=== PATIENT | female | born 1970 | race Caucasian/White ===

== ENCOUNTER 2019-09-20 00:21 | Observation (INO) | payer SELFPAY ==
[2019-09-20] VITALS (13 sets, daily range): BP systolic 117–190; BP diastolic 64–99; PULSE 59–93; RESP 14–19; TEMP 36.3–36.8; O2SAT 96–98; BMI 30.4; BMI 30.7; BMI 30.8
--- NOTE | 2019-09-20 00:29 | EKG12_ITS ---
Test Reason : GEN ILL Blood Pressure : / mmHG Vent. Rate : 078 BPM Atrial Rate : 078 BPM P-R Int : 144 ms QRS Dur : 152 ms QT Int : 484 ms P-R-T Axes : 060 037 -26 degrees QTc Int : 551 ms Normal sinus rhythm Right bundle branch block Abnormal ECG Confirmed by WYATT LEONG ([id number]), non linear editor ASH BECKMAN ([id number]) on 09/21/2019 3:01:48 PM Referred By: Anderson Cutler Confirmed By:WYATT LEONG
[2019-09-20] MEDS: 0.9% Normal Saline 1,000 ML 150 ML IV (01:10)
--- NOTE | 2019-09-20 01:16 | ED.VIS.GEN ---
History of Present Illness Chief Complaint: General Illness Detail of Chief Complaint: Low potassium Informant: Patient Narrative: Patient was in the [facility] today secondary to a 5 or 6-day history of muscle aching and cramping. She has had recent weight loss. It was initially reported that she had had diarrhea however patient states she has chronic diarrhea since having her gallbladder out. Patient received a phone call tonight from physician covering for PCP advising her to come in for a low potassium of 1.9. Patient does report problems with her potassium the past but states is been several years. - Past Medical History (1) Hypertension Status: Chronic (2) GERD (gastroesophageal reflux disease) Status: Chronic (3) Diabetes Status: Chronic (4) Hx of cholecystectomy Status: Chronic Past Medical History - Allergies and Home Meds Allergies/Adverse Reactions: Allergies metformin Adverse Reaction (Verified 09/20/19 00:22) Diarrhea Primary Care Physician: Abdias Christian DO [Primary Care Provider] - Prior records reviewed: Yes Smoking Status: Current every day smoker Review of Systems General: Denies: Chills, Fever Eyes: Denies: Visual changes - bilaterally ENT: Denies: Bilateral ear pain Cardiovascular: Denies: Chest pain Respiratory: Denies: Dyspnea, Cough Musculoskeletal: Reports: Myalgias, Extremity Pain. Denies: Swelling Skin: Denies: Rash Neurological: Denies: Headache Hematologic: Denies: Easy bruising, Easy bleeding Allergy: Denies: Uticaria Physical Exam Vital Signs/Narrative: Vital Signs Temp Pulse Resp BP Pulse Ox 09/20/19 00:22 97.4 F L 93 19 H 190/99 H 98 Inital Vital Signs reviewed: Yes General: Well nourished, Well developed Head: Normocephalic ENT: Moist mucous membranes Neck: Supple Cardiovascular: Regular rate, Regular rhythm Respiratory: No distress, CTA bilaterally Abdomen: Soft, Nontender Skin: Normal color Neurological: Alert, Oriented x3, Normal Strength, Normal Sensation Psychological: Normal affect Diagnostic/Tx/Re-eval Laboratory Results 09/20/19 09/20/19 01:05 01:05 WBC 13.2 H RBC 4.91 Hgb 15.0 Hct 41.0 MCV 83.5 MCH 30.5 MCHC 36.6 H RDW Std Deviation 40.1 RDW Coeff of Marj 13.3 Plt Count 264 MPV 10.9 Immature Gran % (Auto) 0.300 Neut % (Auto) 49.1 Lymph % (Auto) 37.6 [place] % (Auto) 7.7 Eos % (Auto) 4.5 Baso % (Auto) 0.8 Absolute Neuts (auto) 6.5 Absolute Lymphs (auto) 4.96 H Nucleated RBC % 0 Sodium 136 Potassium 1.7 L* Chloride 104 Carbon Dioxide 24.0 Anion Gap 8 BUN 14 Creatinine 1.15 H Estim Creat Clear Calc 44.65 Est GFR (MDRD) Af Amer 64 Est GFR (MDRD) Non-Af 53 L BUN/Creatinine Ratio 12.2 Glucose 417 H Calcium 9.7 Magnesium 2.1 - EKG Initial EKG Interpretation: Sinus Rhythm - Sinus with right bundle branch pattern. Previous EKG is from March 2016 at which time she was sinus rhythm at 76 with no bundle branch block present. - Medical Decision Making I received a phone call from Dr. Antonio informing me of the patient's outpatient labs obtained earlier in the day. Because the patient did have EKG changes noted on surveillance system monitor she was given 60 mEq of potassium chloride shortly after I saw her. Laboratory studies do confirm hypokalemia with a potassium of 1.7. At this time an additional 40 mEq of potassium have been ordered IV. Patient be discussed with hospitalist and admitted to the ICU. ED Disposition - Plan for ED Patient: Disposition: Acute Care Hospital [facility] Diagnosis: Hypokalemia Referrals: Abdias Christian DO [Primary Care Provider] -
[2019-09-20 01:26] LABS: Absolute Lymphocyte Count 4.96 X10^3/uL (0.83-4.51); Absolute Neutrophil Count 6.5 X10^3/uL (2.0-7.7); Basophil# 0.11 X10^3/uL; Basophil% 0.8 % (0-1); Eosinophil# 0.59 X10^3/uL; Eosinophils% 4.5 % (0-5); Lymphocyte # 4.96 X10^3/ul (4.0); Lymphocyte % 37.6 % (19-41); Mean Corp Hgb Conc 36.6 g/dL (32-36); Mean Corpuscular Hgb 30.5 pg (27.0-32.0); Mean Corpuscular Volume 83.5 fL (81-99); Mean Platelet Vol. 10.9 fl (6.2-12.0); Monocyte# 1.01 X10^3/uL; Monocyte% 7.7 % (0-10); NRBC Flagged by Analyzer 0 % (0-5); Neutrophil # 6.48 X10^3/uL (2.7-7.7); Neutrophil % 49.1 % (47-70); Platelet Count 264 K/mm3 (150-450); RBC Distribution Width CV 13.3 % (11.6-14.6); RBC Distribution Width SD 40.1 fl (35.1-43.9); Red Blood Count 4.91 M/mm3 (4.2-5.4); White Blood Count 13.2 K/mm3 (4.4-11.0)
[2019-09-20 01:48] LABS: Anion Gap 8 (5-15); BUN 14 mg/dL (7-18); BUN/Creat Ratio 12.2 RATIO (10-20); Calcium,Total 9.7 mg/dL (8.5-10.1); Chloride 104 mmol/L (98-107); Creatinine, Serum 1.15 mg/dL (0.55-1.02); EST Glomerular Filtration Rate 53 mL/min (>60); Est Glom Filt Rate - Afr Amer 64 mL/min (>60); Estimated Creatinine Clearance 44.65 ml/min; Glucose 417 mg/dL (74-106); Magnesium 2.1 mg/dL (1.6-2.6); Potassium 1.7 mmol/L (3.5-5.1); Sodium Level 136 mmol/L (136-145)
[2019-09-20] MEDS: Potassium Chloride 10mEq/100mL 10 MEQ/100 ML IV.SOLN. 100 MEQ IV BOLUS ×8 (02:09→20:16)
--- NOTE | 2019-09-20 02:44 | HP.PCM_ITS ---
Problem List (1) Hypokalemia Status: Acute History of Present Illness Date of Admission: 09/20/19 Chief Complaint: Hypokalemia The patient is a 48 year old F seen in the emergency room at [facility] after being instructed to go and for evaluation of a low serum potassium. Patient had a serum potassium down yesterday which was 1.7. Patient states that she has had low serum potassium before but she does not know when it was, the last potassium level that we have on the patient was last fall and the potassium was in the normal range. Patient takes medication for blood pressure and type 2 diabetes. Patient complained of muscle weakness and muscle pain over the last few days. Work-up in the emergency room included labs which showed a potassium of 1.7, creatinine was 1.15, glucose was 417, and white blood cell count was 13.2. P stephanie's EKG showed a right bundle branch block but normal sinus rhythm. Patient was given oral potassium in the emergency room and IV potassium also. Patient will be placed into observation status on PCU, she will be given additional oral potassium and her potassium level will be rechecked later this morning. Past Medical History Past Medical History (Chronic Problems): Chronic Problems Hypertension (Chronic) GERD (gastroesophageal reflux disease) (Chronic) Diabetes (Chronic) Hx of cholecystectomy (Chronic) Allergies metformin Adverse Reaction (Verified 09/20/19 00:22) Diarrhea Home Medications: Ambulatory Orders Medication Instructions Recorded Atorvastatin Calcium 40 mg PO DAILY 02/01/17 Calcium Carb/Vitamin D 1 tab PO BID 02/01/17 [Caltrate-600 With Vit D Tab] Cholecalciferol (Vitamin D3) 2,000 unit PO DAILY 02/01/17 [Vitamin D3] Dulaglutide [Trulicity] 1.5 mg SQ QWEEK 02/01/17 Gabapentin 100 mg PO TID 02/01/17 Pantoprazole Sodium [Protonix] 40 mg PO DAILY 02/01/17 Sertraline HCl [Zoloft] 50 mg PO DAILY 02/01/17 metFORMIN (XR) [Glucophage Xr] 1,000 mg PO BID 02/01/17 Hydrocodone Bitart/Apap 5-325 1 tab PO BID 09/20/19 [[place] 5MG-325MG] Insulin Aspart [Novolog Flexpen 20 units SUBCUT TIDCM 09/20/19 ([facility])] Insulin Degludec [Tresiba 70 unit SQ QHS 09/20/19 Flextouch U-100] Lisinopril [Zestril] 40 mg PO DAILY 09/20/19 Metoprolol Tartrate 50 mg PO BID 09/20/19 Surgical History: cholecystectomy, tonsillectomy, - - Surgery for groin abscess, uterine ablation, removal of fallopian tube Psychiatric History: No pertinent psych hx 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 Denies: Anorexia, Chills, Fever, Night Sweats, Malaise, Weight Change, Fatigue Eyes: Denies: Cataracts, Conjunctivae Inflammation, Double vision, Drainage HEENT: Denies: Difficulty Swallowing, Dysphasia, Ear Pain, Eye Pain, Hearing Changes, Nasal bleeding, Nasal Congestion Cardiovascular: Denies: Chest Pain, Claudication, Chest Pressure, Chest Tigh tness, Edema, Palpitations, Paroxysmal Noc. Dyspnea Respiratory: Denies: Cough, Hemoptysis, Pleuritic Pain, Shortness of Breath, Shortness of breath at rest, Shortness of breath upon exertion, Sputum production Gastrointestinal: Denies: Abdominal Pain, Constipation, Diarrhea, Hematemesis, Hematochezia, Nausea, Melena, Vomiting Genitourinary: Denies: Dysuria, Frequency, Hematuria, Hesitancy, Nocturia, Retention, Urgency Gynecological: Denies: Breast symptoms Musculoskeletal: Denies: Back Pain, Foot Pain, Hand Pain, Joint Pain, Joint stiffness, Joint swelling, Joint Tenderness, Leg Pain Skin: Denies: Dryness, Jaundice, Pruritis, Rash Neurological: Denies: Blurred vision, Double vision, Slurred speech, Difficulty swallowing, Focal weakness, Headaches, Incoordination, Numbness, Tingling Psychiatric: Denies: Anxiety, Depression, Homicidal Ideations, Suicidal Ideations Endocrine: Denies: Change in Body Habitus, Heat/ Cold Intolerance, Polydipsia, Polyuria Hematologic/ Lymphatic: Denies: Adenopathy, Anemia, Easy Bruising, Easy Bleeding, Petechiae, Purpura VTE Information - Inpt Only VTE Present on Admission: No VTE Mechan Device Prophylaxis: None VTE Pharm Prophylaxis ordered?: No Reason prophylaxis not ordered:: Treatment Not Indicated - Patient is an observation patient is expected to stay 24 hours or less in the hospital Patient Problems: Active and Suspected Problems Hypokalemia (Acute) - Physical Exam Vitals/I&O's: Vital Signs Temp Pulse Resp BP Pulse Ox 97.4 F L 93 19 H 148/81 H 98 09/20/19 00:22 09/20/19 00:22 09/20/19 00:22 09/20/19 02:35 09/20/19 00:22 Oxygen Delivery Method Room Air Weight: 73.028 kg Body Mass Index (BMI) 30.4 Finger Stick Blood Glucose 403 General: Alert, Oriented x3, Cooperative HEENT: Atraumatic, PERRLA, EOMI, Normocephalic Oral: Moist Mucosa Neck: Supple, No JVD, Negative Carotid Bruits, No Nuchal Rigidity, Trachea Midline, Thyroid Normal Size and Texture Lungs: Clear to auscultation, Normal air movement Cardiovascular: Regular rate, Regular Rhythm, Normal S1, Normal S2, No murmurs, PMI Normal, No rub noted Abdomen: Bowel Sounds Present, Soft, Non Tender, Non-Distended Extremities: No clubbing, No cyanosis, No edema, Capillary Refill Less than 3 Seconds Skin: No rashes, No breakdown Musculoskeletal: No Tenderness to Palpation of Joints or Extremities Neurological: Cranial nerves II-XII grossly intact, Neuro grossly intact, Sensory exam intact to light touch and pain, Coordination normal Psych/Mental Status: Normal Affect, Appropriate, Alert and oriented to time, place, person, mood and affect Laboratory Results 09/20/19 01:05: WBC 13.2 H, RBC 4.91, Hgb 15.0, Hct 41.0, MCV 83.5, MCH 30.5, MCHC 36.6 H, RDW Std Deviation 40.1, RDW Coeff of Marj 13.3, Plt Count 264, MPV 10.9, Immature Gran % (Auto) 0.300, Neut % (Auto) 49.1, Lymph % (Auto) 37.6, [place] % (Auto) 7.7, Eos % (Auto) 4.5, Baso % (Auto) 0.8, Absolute Neuts (auto) 6.5, Absolute Lymphs (auto) 4.96 H, Nucleated RBC % 0 09/20/19 01:05: Sodium 136, Potassium 1.7 L*, Chloride 104, Carbon Dioxide 24.0, Anion Gap 8, BUN 14, Creatinine 1.15 H, Estim Creat Clear Calc 44.65, Est GFR (MDRD) Af Amer 64, Est GFR (MDRD) Non-Af 53 L, BUN/Creatinine Ratio 12.2, Glucose 417 H, Calcium 9.7, Magnesium 2.1 Current Medications Sodium Chloride () 1,000 mls @ 150 mls/hr IV .Q6H40M COUNTS INCLUDE 234 BEDS AT THE [facility] Last Admin: 09/20/19 01:10 Dose: 150 mls/hr Documented by: Potassium Chloride () 10 meq in 100 mls @ 100 mls/hr IV BOLUS Q1H COUNTS INCLUDE 234 BEDS AT THE [facility] Stop: 09/20/19 05:59 Last Admin: 09/20/19 02:09 Dose: 100 mls/hr Documented by: Assessment/Plan All Active Problems Hypokalemia (Acute) Physical exam (Acute) #1 hypokalemia-the exact etiology of this is unknown, patient has episodes of diarrhea but she has not complained of any severe diarrhea in the last several days. I do not have a record of the patient's last few potassium levels at this time. Patient will be placed in observation status on PCU, she will receive additional oral potassium today, she was written for four K riders in the emergency room and these will be continued when she goes to the floor. It is possible the patient has hyperaldosteronism, I will order a serum aldosterone level to be done on the patient. I think is less likely she has RTA-patient's bicarb level is normal on her chem panel. #2 type 2 diabetes-under poor control, patient does not recall her insulin dose at home at this time, her meds will be reconciled when she gets to the floor. Sugars will be monitored and she will receive sliding scale insulin per protocol #3 essential hypertension-when her home meds were reconciled, she will be placed on her blood pressure medication #4 chronic kidney disease stage III-most probably from type 2 diabetes, patient's last creatinine at this hospital was elevated #5 GERD #6 mild leukocytosis-etiology unclear OBSV E&M: [id number] Initial observation care L3
[2019-09-20] MEDS: Acetaminophen 325 MG Tablet 650 MG PO (04:19)
[2019-09-20] MEDS: Insulin Lispro 100 UNIT/ML INSULN.PEN SC ×4 (06:34→21:21)
[2019-09-20 06:40] LABS: Bedside Glucose 447 mg/dL (70-110)
--- NOTE | 2019-09-20 10:53 | CASEMGMT ---
SW met with patient as she does not have insurance, introduced self and role at [facility]. Patient sees a physician at [facility] and she utilizes their financial assistance program. She has been managing getting most of her meds, but not all of them. She has not applied for Medicaid as she was working up to two weeks ago and plans to go back to work. MOE told her SW will give her some resources for help. SW took patient information on [employer], [employer], needymeds.org, and a Medicaid application. Patient was sleeping when SW went back to the room. SW left the paperwork in her room and will stop by a little later to tell her about papers. Peggy LEE MSW
--- NOTE | 2019-09-20 11:28 | PCM.PN.HOSP ---
Patient Problems: Active and Suspected Problems Hypokalemia (Acute) Reason for Visit: follow up for hypokalemia Subjective: Patient seen and examined. She was admitted with abnormal labs with potassium of 1.7. Potassium is been replaced. Patient seen and examined. She has no complaints this morning denies any fever or chills, lightheadedness or dizziness, palpitations, nausea vomiting or diarrhea. Review of systems otherwise negative. Labs and vitals reviewed. Vitals/I&O's: Vital Signs Temp Pulse Resp BP Pulse Ox 98.2 F 78 18 141/75 H 98 09/20/19 08:11 09/20/19 08:11 09/20/19 08:11 09/20/19 08:11 09/20/19 08:11 Oxygen Delivery Method Room Air Weight: 162 lb 14.746 oz Body Mass Index (BMI) 30.7 Finger Stick Blood Glucose 403 Intake and Output for Last 24 Hours 09/18/19 09/19/19 09/20/19 23:59 23:59 23:59 Intake Total 1375 / 1375 Output Total 0 / 0 Balance 1375 / 1375 General: Alert, Oriented x3, Cooperative, - - looks older than stated age HEENT: Atraumatic, PERRLA, EOMI, Normocephalic Oral: Dry Mucosa Neck: Supple, No JVD, Negative Carotid Bruits Lungs: Clear to auscultation, Normal air movement, No rhonchi, No wheeze, No rales Cardiovascular: Regular rate, Regular Rhythm, Normal S1, Normal S2, No murmurs Abdomen: Bowel Sounds Present, Soft, Non Tender, Non-Distended, No Hepato-splenomegaly Extremities: No clubbing, No cyanosis, No edema, Capillary Refill Less than 3 Seconds Skin: No rashes, No breakdown Musculoskeletal: No Tenderness to Palpation of Joints or Extremities Lymphatic: No Cervical, Supraclavicular, or Inguinal Adenopathy Neurological: Cranial nerves II-XII grossly intact, Neuro grossly intact, Motor Exam 5/5 strength throughout Psych/Mental Status: Normal Affect, Appropriate, Alert and oriented to time, place, person, mood and affect Laboratory Results 09/20/19 01:05: WBC 13.2 H, RBC 4.91, Hgb 15.0, Hct 41.0, MCV 83.5, MCH 30.5, MCHC 36.6 H, RDW Std Deviation 40.1, RDW Coeff of Marj 13.3, Plt Count 264, MPV 10.9, Immature Gran % (Auto) 0.300, Neut % (Auto) 49.1, Lymph % (Auto) 37.6, [place] % (Auto) 7.7, Eos % (Auto) 4.5, Baso % (Auto) 0.8, Absolute Neuts (auto) 6.5, Absolute Lymphs (auto) 4.96 H, Nucleated RBC % 0 09/20/19 01:05: Sodium 136, Potassium 1.7 L*, Chloride 104, Carbon Dioxide 24.0, Anion Gap 8, BUN 14, Creatinine 1.15 H, Estim Creat Clear Calc 44.65, Est GFR (MDRD) Af Amer 64, Est GFR (MDRD) Non-Af 53 L, BUN/Creatinine Ratio 12.2, Glucose 417 H, Calcium 9.7, Magnesium 2.1 09/20/19 06:30: POC Glucose 447 H Current Medications Acetaminophen (Tylenol) 650 mg PO Q6H PRN PRN PRN Reason: Pain Score 1-10/Temp > 100.7 F Last Admin: 09/20/19 04:19 Dose: 650 mg Documented by: Dextrose ([id number] Syringe) 0 gm IV X1 PRN; Protocol PRN Reason: Hypoglycemia Glucagon () 1 mg IM .X1 PRN PRN Reason: Hypoglycemia Sodium Chloride () 250 mls @ 15 mls/hr IV .[id number] PRN PRN Reason: Saline Flush Sodium Chloride () 250 mls @ 15 mls/hr IV .[id number] PRN PRN Reason: Additional IVPB Infusion Insulin Human Lispro (Humalog Kwikpen (Bkc)) 0 unit SC [facility]; Protocol Last Admin: 09/20/19 06:34 Dose: 16 units Documented by: Sodium Chloride () 10 - 40 ml IV UD PRN PRN Reason: SALINE FLUSH STROKE Vital Signs/Narrative: Vital Signs Temp Pulse Resp BP Pulse Ox 09/20/19 08:11 98.2 F 78 18 141/75 H 98 09/20/19 07:39 77 Medical Necessity - Tobacco Use Smoking Status: Current every day smoker Tobacco Use: Cigarettes Assessment/Plan All Active Problems Hypokalemia (Acute) Physical exam (Acute) 1. Hypokalemia K is 1.7 aetiology is uncertain, as she hasnt had any diarrhea, nor beenon any medication that can deplete potassium potassium being replaced. will repeat K levels and replace as appropriate magnesium level was normal 2. Type 2 diabetes mellitus On metformin and Lantus 70 units nightly. Insulin sliding scale. Accu-Cheks AC at bedtime. Of note, patient does have metformin listed as an allergy. However she states that she is able to take the extended release and does fine with that but the other types of metformin gave her severe diarrhea. Will continue with her current dose of metformin extended release. 3. Hypertension: On lisinopril and metoprolol. 4. CKD stage III: Baseline creatinine is 1.24 from our records. Creatinine on admission was 1.415. Will monitor. DVT prophylaxis: [facility] Inpatient E&M: 40433 Subs Hosp L3
[2019-09-20 11:36] LABS: Bedside Glucose 456 mg/dL (70-110)
[2019-09-20 11:51] LABS: Potassium 2.7 mmol/L (3.5-5.1)
[2019-09-20] MEDS: Gabapentin 100 MG Capsule PO ×2 (11:55→16:44)
[2019-09-20] MEDS: Insulin Lispro 100 UNIT/ML INSULN.PEN 20 UNIT SC ×2 (11:56→16:42)
[2019-09-20 12:00] LABS: Glucose 458 mg/dL (74-106)
[2019-09-20] MEDS: metFORMIN (XR) 500 MG Tablet 1000 MG PO (16:44)
[2019-09-20] MEDS: Calcium Carb/Vitamin D 1 TABLET Tablet PO (16:44)
[2019-09-20 16:55] LABS: Bedside Glucose 263 mg/dL (70-110)
[2019-09-20] MEDS: HYDROcodone Bitartrate/Apap 5/325 Tablet PO (21:20)
[2019-09-20] MEDS: Atorvastatin Calcium 40 MG Tablet PO (21:21)
[2019-09-20] MEDS: Metoprolol Tartrate 50 MG Tablet PO (21:21)
[2019-09-20 22:31] LABS: Bedside Glucose 257 mg/dL (70-110)
[2019-09-20 23:05] LABS: Potassium 2.7 mmol/L (3.5-5.1)
[2019-09-21] VITALS (11 sets, daily range): BP systolic 128–140; BP diastolic 58–73; PULSE 56–66; RESP 14–16; TEMP 36.6–37; O2SAT 94–98
[2019-09-21] MEDS: Potassium Chloride 10mEq/100mL 10 MEQ/100 ML IV.SOLN. 100 MEQ IV BOLUS ×7 (00:56→11:30)
[2019-09-21 06:50] LABS: Anion Gap 8 (5-15); BUN 15 mg/dL (7-18); BUN/Creat Ratio 16.9 RATIO (10-20); Calcium,Total 8.3 mg/dL (8.5-10.1); Chloride 114 mmol/L (98-107); Creatinine, Serum 0.89 mg/dL (0.55-1.02); EST Glomerular Filtration Rate 72 mL/min (>60); Est Glom Filt Rate - Afr Amer 87 mL/min (>60); Glucose 307 mg/dL (74-106); Potassium 3.3 mmol/L (3.5-5.1); Sodium Level 142 mmol/L (136-145)
[2019-09-21] MEDS: Insulin Lispro 100 UNIT/ML INSULN.PEN 20 UNIT SC ×3 (07:44→17:20)
[2019-09-21] MEDS: Insulin Lispro 100 UNIT/ML INSULN.PEN SC ×3 (07:44→22:19)
[2019-09-21] MEDS: metFORMIN (XR) 500 MG Tablet 1000 MG PO ×2 (07:45→16:14)
[2019-09-21] MEDS: Calcium Carb/Vitamin D 1 TABLET Tablet PO ×2 (07:45→16:13)
[2019-09-21] MEDS: Gabapentin 100 MG Capsule PO ×3 (07:45→16:14)
[2019-09-21 07:55] LABS: Bedside Glucose 321 mg/dL (70-110)
[2019-09-21] MEDS: Metoprolol Tartrate 50 MG Tablet PO ×2 (09:38→22:19)
[2019-09-21] MEDS: Sertraline 50 MG Tablet PO (09:38)
[2019-09-21] MEDS: Pantoprazole Sodium 40 MG Tablet PO (09:38)
[2019-09-21] MEDS: Lisinopril 40 MG Tablet PO (09:39)
[2019-09-21] MEDS: HYDROcodone Bitartrate/Apap 5/325 Tablet PO ×2 (09:41→22:20)
--- NOTE | 2019-09-21 10:53 | DCINST_ITS ---
- Discharge Diagnoses Current Active Problems: Current Active and Chronic Problems Hypertension (Chronic) GERD (gastroesophageal reflux disease) (Chronic) Diabetes (Chronic) Hx of cholecystectomy (Chronic) Hypokalemia (Acute) You will use the following diet at home:: Cardiac Your food should be the consistency of: Regular Your liquids should be the consistency of: Regular/Thin Discharge Activity: Return to Normal Activity Weight Bearing Status: Weight bearing as tolerated Call your doctor if you observe: Fever of 101 or Higher, Shortness of breath, Dizziness, Increased palpitations (irregular heartbeat) Instructions: ED Potassium Deficiency Additional Instructions: to eat bananas, and drink orange juice and coconut water- foods rich in potassiuim. Allergies/Adverse Reactions: Allergies metformin Adverse Reaction (Verified 09/20/19 00:22) Diarrhea Medications to take at Discharge Atorvastatin Calcium 40 mg PO DAILY 02/01/17 Calcium Carb/Vitamin D [Caltrate-600 With Vit D Tab] 1 tab PO BID 02/01/17 Cholecalciferol (Vitamin D3) [Vitamin D3] 2,000 unit PO DAILY 02/01/17 Dulaglutide [Trulicity] 1.5 mg SQ QWEEK 02/01/17 Gabapentin 100 mg PO TID 02/01/17 Pantoprazole Sodium [Protonix] 40 mg PO DAILY 02/01/17 Sertraline HCl [Zoloft] 50 mg PO DAILY 02/01/17 metFORMIN (XR) [Glucophage Xr] 1,000 mg PO BID 02/01/17 Hydrocodone Bitart/Apap 5-325 [[place] 5/325] 1 tab PO BID 09/20/19 Insulin Aspart [Novolog Flexpen] 20 units SUBCUT TIDCM 09/20/19 Insulin Degludec [Tresiba Flextouch U-100] 70 unit SQ QHS 09/20/19 Lisinopril [Zestril] 40 mg PO DAILY 09/20/19 Metoprolol Tartrate 50 mg PO BID 09/20/19 Potassium Chloride [K-Dur] 40 meq PO DAILY #60 tab 09/21/19 The following prescriptions were given: Potassium Chloride [K-Dur] 40 meq PO DAILY #60 tab Transmission Status: Sent to [facility] [place] [id number] Primary Care Physician: Abdias Christian DO [Primary Care Provider] - Please follow up with your Primary Care Physician in: 1-2 weeks Test Results: Test results from this visit will be discussed in further detail at your follow- up appointment, if applicable. Proposed Discharge Date: 09/21/19
--- NOTE | 2019-09-21 10:56 | DS.PCM_ITS ---
Discharge Date and Diagnosis - Problem List Patient Problems: Active and Suspected Problems Hypokalemia (Acute) Date of Admission: 09/20/19 Date of Discharge: 09/21/19 - Primary Discharge Diagnosis Active and Suspected Problems Hypokalemia (Acute) - Secondary Discharge Diagnosis Chronic Problems Hypertension (Chronic) GERD (gastroesophageal reflux disease) (Chronic) Diabetes (Chronic) Hx of cholecystectomy (Chronic) Hospital Course and Treatment Imaging Results: Vital Signs Temp Pulse Resp BP Pulse Ox 98.2 F 66 14 140/73 H 98 09/21/19 09:36 09/21/19 09:38 09/21/19 09:36 09/21/19 09:36 09/21/19 09:36 Operations: None Procedures: None Summary of Care Provided: The patient is a 48 year old F with a past medical history as outlined. She was admitted to the ED on 09/20/2019 with a complaint of low potassium. Patient's potassium was 1.7 and she was told to come in by her doctor. Patient did admit to having low potassium in the past. She complained of muscle weakness and muscle pain over the past 3 days prior to admission. On admission, potassium was 1.7 with creatinine of 1.15. EKG showed chronic right bundle branch block with normal sinus rhythm. Patient was given oral potassium in the ED and also given IV potassium and she was admitted and managed for hypokalemia. Potassium trended up to 2.7 then to 3.3. Her muscle aches resolved. On day of discharge, patient was given IV potassium 40 m equivalent as potassium was 3.3. She was discharged with a prescription for p.o. potassium 40 mg daily and is follow-up with her primary care doctor for follow-up BMP within 2 to 3 days. Patient seen and examined prior to discharge. She had no complaints. Review of symptoms otherwise negative. Labs and vitals reviewed. Home medication reviewed and reconciled. o/e: Vital Signs Temp Pulse Resp BP Pulse Ox 98.2 F 66 14 140/73 H 98 09/21/19 09:36 09/21/19 09:38 09/21/19 09:36 09/21/19 09:36 09/21/19 09:36 [] General: Alert, Oriented x3, Cooperative, - - looks older than stated age HEENT: Atraumatic, PERRLA, EOMI, Normocephalic Oral: Dry Mucosa Neck: Supple, No JVD, Negative Carotid Bruits Lungs: Clear to auscultation, Normal air movement, No rhonchi, No wheeze, No rales Cardiovascular: Regular rate, Regular Rhythm, Normal S1, Normal S2, No murmurs Abdomen: Bowel Sounds Present, Soft, Non Tender, Non-Distended, No Hepato- splenomegaly Extremities: No clubbing, No cyanosis, No edema, Capillary Refill Less than 3 Seconds Skin: No rashes, No breakdown Musculoskeletal: No Tenderness to Palpation of Joints or Extremities Lymphatic: No Cervical, Supraclavicular, or Inguinal Adenopathy Neurological: Cranial nerves II-XII grossly intact, Neuro grossly intact, Motor Exam 5/5 strength throughout Psych/Mental Status: Normal Affect, Appropriate, Alert and oriented to time, place, person, mood and affect Plan is for dc home today. Patient Problems: Active and Suspected Problems Hypokalemia (Acute) - Physical Exam Vitals/I&O's: Vital Signs Temp Pulse Resp BP Pulse Ox 98.2 F 66 14 140/73 H 98 09/21/19 09:36 09/21/19 09:38 09/21/19 09:36 09/21/19 09:36 09/21/19 09:36 Oxygen Flow Rate (L/min) 15 Oxygen Delivery Method Room Air Weight: 162 lb 14.746 oz Body Mass Index (BMI) 30.7 Finger Stick Blood Glucose 403 Intake and Output for Last 24 Hours 09/19/19 09/20/19 09/21/19 23:59 23:59 23:59 Intake Total 2875 / 2875 500 / 500 Output Total 0 / 0 Balance 2875 / 2875 500 / 500 Laboratory Results 09/20/19 11:18: POC Glucose 456 H* 09/20/19 11:35: Aldosterone Pending 09/20/19 11:35: Potassium 2.7 L* 09/20/19 11:35: Glucose 458 H* 09/20/19 16:42: POC Glucose 263 H 09/20/19 21:14: POC Glucose 257 H 09/20/19 22:18: Potassium 2.7 L* 09/21/19 06:10: Sodium 142, Potassium 3.3 L, Chloride 114 H, Carbon Dioxide 20.0 L, Anion Gap 8, BUN 15, Creatinine 0.89, Estim Creat Clear Calc 57.70, Est GFR (MDRD) Af Amer 87, Est GFR (MDRD) Non-Af 72, BUN/Creatinine Ratio 16.9, Glucose 307 H, Calcium 8.3 L 09/21/19 07:36: POC Glucose 321 H Current Medications Acetaminophen (Tylenol) 650 mg PO Q6H PRN PRN PRN Reason: Pain Score 1-10/Temp > 100.7 F Last Admin: 09/20/19 04:19 Dose: 650 mg Documented by: Hydrocodone Bitart/Acetaminophen ([place] 5mg-325mg) 1 tablet PO BID [facility] Last Admin: 09/21/19 09:41 Dose: 1 tablet Documented by: Atorvastatin Calcium (Lipitor) 40 mg PO QHS [facility] Last Admin: 09/20/19 21:21 Dose: 40 mg Documented by: Calcium/Vitamin D (Os-[place] 500mg + D) 1 tablet PO BIDCM [facility] Last Admin: 09/21/19 07:45 Dose: 1 tablet Documented by: Cholecalciferol (Vitamin D (25mcg)) 2,000 unit PO DAILY [facility] Last Admin: 09/21/19 09:38 Dose: 2,000 unit Documented by: Dextrose (D50w Syringe) 0 gm IV X1 PRN; Protocol PRN Reason: Hypoglycemia Gabapentin (Neurontin) 100 mg PO TIDCM [facility] Last Admin: 09/21/19 07:45 Dose: 100 mg Documented by: Glucagon () 1 mg IM .X1 PRN PRN Reason: Hypoglycemia Sodium Chloride () 250 mls @ 15 mls/hr IV .[id number] PRN PRN Reason: Saline Flush Sodium Chloride () 250 mls @ 15 mls/hr IV .[id number] PRN PRN Reason: Additional IVPB Infusion Potassium Chloride () 10 meq in 100 mls @ 100 mls/hr IV BOLUS Q1H [facility] Stop: 09/21/19 11:29 Last Admin: 09/21/19 10:20 Dose: 100 mls/hr Documented by: Insulin Glargine (Lantus (Bk)) 70 units SC QHS [facility] Last Admin: 09/20/19 21:22 Dose: 70 u Documented by: Insulin Human Lispro (Humalog Kwikpen ([facility])) 0 unit SC ACHS [facility]; Protocol Last Admin: 09/21/19 07:44 Dose: 9 units Documented by: Insulin Human Lispro (Humalog Kwikpen (Bkc)) 20 unit SC 0800,1200,1700 [facility] Last Admin: 09/21/19 07:44 Dose: 20 units Documented by: Lisinopril (Zestril) 40 mg PO DAILY [facility] Last Admin: 09/21/19 09:39 Dose: 40 mg Documented by: [facility] Last Admin: 09/21/19 07:45 Dose: 1,000 mg Documented by: Metoprolol Tartrate (Lopressor (Beta Melinda)) 50 mg PO BID [facility] Last Admin: 09/21/19 09:38 Dose: 50 mg Documented by: Pantoprazole Sodium (Protonix) 40 mg PO DAILY [facility] Last Admin: 09/21/19 09:38 Dose: 40 mg Documented by: Sertraline HCl (Zoloft) 50 mg PO DAILY [facility] Last Admin: 09/21/19 09:38 Dose: 50 mg Documented by: Sodium Chloride () 10 - 40 ml IV UD PRN PRN Reason: SALINE FLUSH Discharge Diet: Low fat/ Low Cholesterol Discharge Activity: Return to Normal Activity Weight Bearing Status: Weight bearing as tolerated Call your doctor if you observe: Fever of 101 or Higher, Shortness of breath, Dizziness, Increased palpitations (irregular heartbeat) Home Medications: Medications to take at Discharge Atorvastatin Calcium 40 mg PO DAILY 02/01/17 Calcium Carb/Vitamin D [Caltrate-600 With Vit D Tab] 1 tab PO BID 02/01/17 Cholecalciferol (Vitamin D3) [Vitamin D3] 2,000 unit PO DAILY 02/01/17 Dulaglutide [Trulicity] 1.5 mg SQ QWEEK 02/01/17 Gabapentin 100 mg PO TID 02/01/17 Pantoprazole Sodium [Protonix] 40 mg PO DAILY 02/01/17 Sertraline HCl [Zoloft] 50 mg PO DAILY 02/01/17 metFORMIN (XR) [Glucophage Xr] 1,000 mg PO BID 02/01/17 Hydrocodone Bitart/Apap 5-325 [[place] 5/325] 1 tab PO BID 09/20/19 Insulin Aspart [Novolog Flexpen] 20 units SUBCUT TIDCM 09/20/19 Insulin Degludec [Tresiba Flextouch U-100] 70 unit SQ QHS 09/20/19 Lisinopril [Zestril] 40 mg PO DAILY 09/20/19 Metoprolol Tartrate 50 mg PO BID 09/20/19 Potassium Chloride [K-Dur] 40 meq PO DAILY #60 tab 09/21/19 Following Prescrptions Were Given to Patient: Potassium Chloride [K-Dur] 40 meq PO DAILY #60 tab Transmission Status: Sent to [place] [id number] Primary Care Physician: Abdias Christian DO [Primary Care Provider] - Please follow up with your Primary Care Physician in: 1-2 weeks Patient Instructions: ED Potassium Deficiency Disposition: Home Minutes spent on discharge:: 40 Patient Condition:: Stable Medical Necessity - Tobacco Use Smoking Status: Current every day smoker Tobacco Use: Cigarettes Meaningful Use Info Meaningful Use Diagnoses (Choose all that apply): None applicable Inpatient E&M: 86989 Disch Hosp
[2019-09-21 11:45] LABS: Bedside Glucose 240 mg/dL (70-110)
[2019-09-21 15:10] LABS: Anion Gap 5 (5-15); BUN 15 mg/dL (7-18); BUN/Creat Ratio 17.6 RATIO (10-20); Calcium,Total 9.4 mg/dL (8.5-10.1); Chloride 113 mmol/L (98-107); Creatinine, Serum 0.85 mg/dL (0.55-1.02); EST Glomerular Filtration Rate 75 mL/min (>60); Est Glom Filt Rate - Afr Amer 91 mL/min (>60); Estimated Creatinine Clearance 60.41 ml/min; Glucose 129 mg/dL (74-106); Potassium 3.1 mmol/L (3.5-5.1); Sodium Level 143 mmol/L (136-145)
[2019-09-21 17:26] LABS: Bedside Glucose 149 mg/dL (70-110)
--- NOTE | 2019-09-21 17:46 | PCM.PN.HOSP ---
Patient Problems: Active and Suspected Problems Hypokalemia (Acute) Reason for Visit: follow up for hypokalemia Subjective: Patient seen and examined. She had no complaints. Potassium was 3.3 this morning. Despite aggressive replacement of potassium, repeat potassium level was only 3.1 I think it is prudent to keep patient to further replace potassium until it is >4. Vitals/I&O's: Vital Signs Temp Pulse Resp BP Pulse Ox 97.8 F 60 14 136/70 H 97 09/21/19 15:30 09/21/19 15:30 09/21/19 15:30 09/21/19 15:30 09/21/19 15:30 Oxygen Flow Rate (L/min) 15 Oxygen Delivery Method Room Air Weight: 162 lb 14.746 oz Body Mass Index (BMI) 30.7 Finger Stick Blood Glucose 403 Intake and Output for Last 24 Hours 09/19/19 09/20/19 09/21/19 23:59 23:59 23:59 Intake Total 2875 / 2875 700 / 700 Output Total 0 / 0 Balance 2875 / 2875 700 / 700 General: Alert, Oriented x3, Cooperative HEENT: Atraumatic, PERRLA, EOMI, Normocephalic Neck: Supple, No JVD, Negative Carotid Bruits Lungs: Clear to auscultation, Normal air movement Cardiovascular: Regular rate, No murmurs Abdomen: Bowel Sounds Present, Soft, Non Tender Extremities: No edema, Capillary Refill Less than 3 Seconds Skin: No rashes, No breakdown Musculoskeletal: No Tenderness to Palpation of Joints or Extremities Neurological: Cranial nerves II-XII grossly intact Psych/Mental Status: Normal Affect, Appropriate, Alert and oriented to time, place, person, mood and affect Laboratory Results 09/20/19 21:14: POC Glucose 257 H 09/20/19 22:18: Potassium 2.7 L* 09/21/19 06:10: Sodium 142, Potassium 3.3 L, Chloride 114 H, Carbon Dioxide 20.0 L, Anion Gap 8, BUN 15, Creatinine 0.89, Estim Creat Clear Calc 57.70, Est GFR (MDRD) Af Amer 87, Est GFR (MDRD) Non-Af 72, BUN/Creatinine Ratio 16.9, Glucose 307 H, Calcium 8.3 L 09/21/19 07:36: POC Glucose 321 H 09/21/19 11:35: POC Glucose 240 H 09/21/19 14:15: Sodium 143, Potassium 3.1 L, Chloride 113 H, Carbon Dioxide 25.0, Anion Gap 5, BUN 15, Creatinine 0.85, Estim Creat Clear Calc 60.41, Est GFR (MDRD) Af Amer 91, Est GFR (MDRD) Non-Af 75, BUN/Creatinine Ratio 17.6, Glucose 129 H, Calcium 9.4 09/21/19 17:18: POC Glucose 149 H Current Medications Acetaminophen (Tylenol) 650 mg PO Q6H PRN PRN PRN Reason: Pain Score 1-10/Temp > 100.7 F Last Admin: 09/20/19 04:19 Dose: 650 mg Documented by: Hydrocodone Bitart/Acetaminophen ([place] 5mg-325mg) 1 tablet PO BID [facility] Last Admin: 09/21/19 09:41 Dose: 1 tablet Documented by: Atorvastatin Calcium (Lipitor) 40 mg PO QHS [facility] Last Admin: 09/20/19 21:21 Dose: 40 mg Documented by: Calcium/Vitamin D (Os-Rob[place] 500mg + D) [facility] Last Admin: 09/21/19 16:13 Dose: 1 tablet Documented by: Cholecalciferol (Vitamin D (25mcg)) 2,000 unit PO DAILY [facility] Last Admin: 09/21/19 09:38 Dose: 2,000 unit Documented by: Dextrose (D50w Syringe) 0 gm IV X1 PRN; Protocol PRN Reason: Hypoglycemia Gabapentin (Neurontin) 100 mg PO TIDCM [facility] Last Admin: 09/21/19 16:14 Dose: 100 mg Documented by: Glucagon () 1 mg IM .X1 PRN PRN Reason: Hypoglycemia Sodium Chloride () 250 mls @ 15 mls/hr IV .[id number] PRN PRN Reason: Saline Flush Sodium Chloride () 250 mls @ 15 mls/hr IV .[id number] PRN PRN Reason: Additional IVPB Infusion Insulin Glargine (Lantus (Bk)) 70 units SC QHS [facility] Last Admin: 09/20/19 21:22 Dose: 70 u Documented by: Insulin Human Lispro (Humalog Kwikpen ([facility])) 0 unit SC [facility]; Protocol Last Admin: 09/21/19 17:19 Dose: Not Given Documented by: Insulin Human Lispro (Humalog Kwikpen (Bkc)) 20 unit SC 0800,1200,1700 [facility] Last Admin: 09/21/19 17:20 Dose: 20 units Documented by: Lisinopril (Zestril) 40 mg PO DAILY [facility] Last Admin: 09/21/19 09:39 Dose: 40 mg Documented by: Metformin HCl ([facility]) [facility] Last Admin: 09/21/19 16:14 Dose: 1,000 mg Documented by: Metoprolol Tartrate (Lopressor (Beta Melinda)) 50 mg PO BID [facility] Last Admin: 09/21/19 09:38 Dose: 50 mg Documented by: Pantoprazole Sodium (Protonix) 40 mg PO DAILY [facility] Last Admin: 09/21/19 09:38 Dose: 40 mg Documented by: Sertraline HCl (Zoloft) 50 mg PO DAILY [facility] Last Admin: 09/21/19 09:38 Dose: 50 mg Documented by: Sodium Chloride () 10 - 40 ml IV UD PRN PRN Reason: SALINE FLUSH STROKE Vital Signs/Narrative: Vital Signs Temp Pulse Resp BP Pulse Ox 09/21/19 15:30 97.8 F 60 14 136/70 H 97 09/21/19 15:00 57 L Medical Necessity - Tobacco Use Smoking Status: Current every day smoker Tobacco Use: Cigarettes Assessment/Plan All Active Problems Hypokalemia (Acute) Physical exam (Acute) 1. Hypokalemia K was 3.3 this morning, despite further replenishing, was 3.1 this afternoon will continue replacing until K is >4 2. Type 2 diabetes mellitus On metformin and Lantus 70 units nightly. Insulin sliding scale. Accu-Cheks AC at bedtime. 3. Hypertension: On lisinopril and metoprolol. 4. CKD stage III: stable DVT prophylaxis: [facility] Inpatient E&M: [id number] [facility] Hosp L2
[2019-09-21 20:39] LABS: Anion Gap 4 (5-15); BUN 18 mg/dL (7-18); BUN/Creat Ratio 21.6 RATIO (10-20); Calcium,Total 9.4 mg/dL (8.5-10.1); Chloride 113 mmol/L (98-107); Creatinine, Serum 0.84 mg/dL (0.55-1.02); EST Glomerular Filtration Rate 77 mL/min (>60); Est Glom Filt Rate - Afr Amer 93 mL/min (>60); Estimated Creatinine Clearance 61.13 ml/min; Glucose 105 mg/dL (74-106); Potassium 3.3 mmol/L (3.5-5.1); Sodium Level 144 mmol/L (136-145)
[2019-09-21 20:58] LABS: Magnesium 1.8 mg/dL (1.6-2.6)
[2019-09-21] MEDS: Atorvastatin Calcium 40 MG Tablet PO (22:20)
[2019-09-21] MEDS: 0.9% Saline Lock 10 ML Syringe IV (22:24)
[2019-09-21 23:06] LABS: Bedside Glucose 164 mg/dL (70-110)
[2019-09-22 01:42] VITALS: BP 129/54; PULSE 60; RESP 16; TEMP 36.9; O2SAT 97
[2019-09-22 02:42] VITALS: PULSE 56
[2019-09-22 06:47] VITALS: BP 129/70; PULSE 52; RESP 16; TEMP 36.8; O2SAT 98
[2019-09-22 07:00] VITALS: PULSE 50
[2019-09-22 07:11] LABS: Bedside Glucose 162 mg/dL (70-110)
[2019-09-22 07:16] LABS: Anion Gap 7 (5-15); BUN 17 mg/dL (7-18); BUN/Creat Ratio 19.8 RATIO (10-20); Calcium,Total 9.4 mg/dL (8.5-10.1); Chloride 117 mmol/L (98-107); Creatinine, Serum 0.86 mg/dL (0.55-1.02); EST Glomerular Filtration Rate 74 mL/min (>60); Est Glom Filt Rate - Afr Amer 90 mL/min (>60); Estimated Creatinine Clearance 59.71 ml/min; Glucose 141 mg/dL (74-106); Magnesium 1.9 mg/dL (1.6-2.6); Potassium 3.7 mmol/L (3.5-5.1); Sodium Level 146 mmol/L (136-145)
[2019-09-22] MEDS: Insulin Lispro 100 UNIT/ML INSULN.PEN SC (08:20)
[2019-09-22] MEDS: Gabapentin 100 MG Capsule PO (08:21)
[2019-09-22] MEDS: metFORMIN (XR) 500 MG Tablet 1000 MG PO (08:21)
[2019-09-22] MEDS: Insulin Lispro 100 UNIT/ML INSULN.PEN 20 UNIT SC (08:21)
[2019-09-22 08:22] VITALS: PULSE 62
[2019-09-22] MEDS: Lisinopril 40 MG Tablet PO (08:22)
[2019-09-22] MEDS: Metoprolol Tartrate 50 MG Tablet PO (08:22)
[2019-09-22] MEDS: Calcium Carb/Vitamin D 1 TABLET Tablet PO (08:22)
[2019-09-22] MEDS: Pantoprazole Sodium 40 MG Tablet PO (08:22)
[2019-09-22] MEDS: Sertraline 50 MG Tablet PO (08:23)
[2019-09-22] MEDS: Acetaminophen 325 MG Tablet 650 MG PO (08:26)
[2019-09-22] MEDS: HYDROcodone Bitartrate/Apap 5/325 Tablet PO (08:26)
--- NOTE | 2019-09-22 10:24 | DS.PCM_ITS ---
Discharge Date and Diagnosis Date of Admission: 09/20/19 Date of Discharge: 09/22/19 - Primary Discharge Diagnosis Active and Suspected Problems Hypokalemia (Acute) - Secondary Discharge Diagnosis Chronic Problems Hypertension (Chronic) GERD (gastroesophageal reflux disease) (Chronic) Diabetes (Chronic) Hx of cholecystectomy (Chronic) Hospital Course and Treatment Operations: None Procedures: None Summary of Care Provided: The patient is a 48 year old F with a past medical history as outlined. She was admitted to the ED on 09/20/2019 with a complaint of low potassium. Patient's potassium was 1.7 and she was told to come in by her doctor. Patient did admit to having low potassium in the past. She complained of muscle weakness and muscle pain over the past 3 days prior to admission. On admission, potassium was 1.7 with creatinine of 1.15. EKG showed chronic right bundle branch block with normal sinus rhythm. Patient was given oral potassium in the ED and also given IV potassium and she was admitted and managed for hypokalemia. Potassium trended up to 2.7 then to 3.3. Her muscle aches resolved. On day of discharge, potassium was 3.7. Patient was discharged with a script for PO potassium 40meq bid and is ton follow up with her primary care doctor for follow-up BMP within 2 to 3 days. Potassium dose to be adjusted by her PCP as appropriate based on follow up K levels. Patient seen and examined prior to discharge. She had no complaints. Review of symptoms otherwise negative. Labs and vitals reviewed. Home medication reviewed and reconciled. o/e: Vital Signs Temp Pulse Resp BP Pulse Ox 98.3 F 62 16 129/70 H 98 09/22/19 06:47 09/22/19 08:22 09/22/19 06:47 09/22/19 06:47 09/22/19 06:47 General: Alert, Oriented x3, Cooperative HEENT: Atraumatic, PERRLA, EOMI, Normocephalic Oral: Dry Mucosa Neck: Supple, No JVD, Negative Carotid Bruits Lungs: Clear to auscultation, Normal air movement, No rhonchi, No wheeze, No ral es Cardiovascular: Regular rate, Regular Rhythm, Normal S1, Normal S2, No murmurs Abdomen: Bowel Sounds Present, Soft, Non Tender, Non-Distended, No Hepato- splenomegaly Extremities: No clubbing, No cyanosis, No edema, Capillary Refill Less than 3 Seconds Skin: No rashes, No breakdown Musculoskeletal: No Tenderness to Palpation of Joints or Extremities Lymphatic: No Cervical, Supraclavicular, or Inguinal Adenopathy Neurological: Cranial nerves II-XII grossly intact, Neuro grossly intact, Motor Exam 5/5 strength throughout Psych/Mental Status: Normal Affect, Appropriate, Alert and oriented to time, place, person, mood and affect Plan is for dc home today. - Physical Exam Vitals/I&O's: Vital Signs Temp Pulse Resp BP Pulse Ox 98.3 F 62 16 129/70 H 98 09/22/19 06:47 09/22/19 08:22 09/22/19 06:47 09/22/19 06:47 09/22/19 06:47 Oxygen Flow Rate (L/min) 15 Oxygen Delivery Method Room Air Weight: 162 lb 14.746 oz Body Mass Index (BMI) 30.7 Finger Stick Blood Glucose 403 Intake and Output for Last 24 Hours 09/20/19 09/21/19 09/22/19 23:59 23:59 23:59 Intake Total 2875 / 2875 1340 / 1340 150 / 150 Output Total 0 / 0 Balance 2875 / 2875 1340 / 1340 150 / 150 Laboratory Results 09/21/19 11:35: POC Glucose 240 H 09/21/19 14:15: Sodium 143, Potassium 3.1 L, Chloride 113 H, Carbon Dioxide 25.0, Anion Gap 5, BUN 15, Creatinine 0.85, Estim Creat Clear Calc 60.41, Est GFR (MDRD) Af Amer 91, Est GFR (MDRD) Non-Af 75, BUN/Creatinine Ratio 17.6, Glucose 129 H, Calcium 9.4 09/21/19 17:18: POC Glucose 149 H 09/21/19 20:12: Sodium 144, Potassium 3.3 L, Chloride 113 H, Carbon Dioxide 27.0, Anion Gap 4 L, BUN 18, Creatinine 0.84, Estim Creat Clear Calc 61.13, Est GFR (MDRD) Af Amer 93, Est GFR (MDRD) Non-Af 77, BUN/Creatinine Ratio 21.6 H, Glucose 105, Calcium 9.4 09/21/19 20:12: Magnesium 1.8 09/21/19 22:09: POC Glucose 164 H 09/22/19 06:10: Sodium 146 H, Potassium 3.7, Chloride 117 H, Carbon Dioxide 22.0, Anion Gap 7, BUN 17, Creatinine 0.86, Estim Creat Clear Calc 59.71, Est GFR (MDRD) Af Amer 90, Est GFR (MDRD) Non-Af 74, BUN/Creatinine Ratio 19.8, Glucose 141 H, Calcium 9.4, Magnesium 1.9 09/22/19 06:52: POC Glucose 162 H Current Medications Acetaminophen (Tylenol) 650 mg PO Q6H PRN PRN PRN Reason: Pain Score 1-10/Temp > 100.7 F Last Admin: 09/22/19 08:26 Dose: 650 mg Documented by: Hydrocodone Bitart/Acetaminophen ([place] 5mg-325mg) 1 tablet PO BID [facility] Last Admin: 09/22/19 08:26 Dose: 1 tablet Documented by: Atorvastatin Calcium (Lipitor) 40 mg PO QHS [facility] Last Admin: 09/21/19 22:20 Dose: 40 mg Documented by: Calcium/Vitamin D (Os-Robby 500mg + D) [facility] Last Admin: 09/22/19 08:22 Dose: 1 tablet Documented by: Cholecalciferol (Vitamin D (25mcg)) 2,000 unit PO DAILY [facility] Last Admin: 09/22/19 08:21 Dose: 2,000 unit Documented by: Dextrose (D50w Syringe) 0 gm IV X1 PRN; Protocol PRN Reason: Hypoglycemia Gabapentin (Neurontin) 100 mg PO TIDCM [facility] Last Admin: 09/22/19 08:21 Dose: 100 mg Documented by: Glucagon () 1 mg IM .X1 PRN PRN Reason: Hypoglycemia Sodium Chloride () 250 mls @ 15 mls/hr IV .[id number] PRN PRN Reason: Saline Flush Sodium Chloride () 250 mls @ 15 mls/hr IV .[id number] PRN PRN Reason: Additional IVPB Infusion Insulin Glargine (Lantus (Bk)) 70 units SC QHS [facility] Last Admin: 09/21/19 22:18 Dose: 70 u Documented by: Insulin Human Lispro (Humalog Kwikpen (Bk)) 0 unit SC [facility]; Protocol Last Admin: 09/22/19 08:20 Dose: 3 units Documented by: Insulin Human Lispro (Humalog Kwikpen (Bkc)) 20 unit SC 0800,1200,1700 [facility] Last Admin: 09/22/19 08:21 Dose: 20 units Documented by: Lisinopril (Zestril) 40 mg PO DAILY [facility] Last Admin: 09/22/19 08:22 Dose: 40 mg Documented by: Metformin HCl (Glucophage Xr) [facility] Last Admin: 09/22/19 08:21 Dose: 1,000 mg Documented by: Metoprolol Tartrate (Lopressor (Beta Melinda)) 50 mg PO BID [facility] Last Admin: 09/22/19 08:22 Dose: 50 mg Documented by: Pantoprazole Sodium (Protonix) 40 mg PO DAILY [facility] Last Admin: 09/22/19 08:22 Dose: 40 mg Documented by: Sertraline HCl (Zoloft) 50 mg PO DAILY [facility] Last Admin: 09/22/19 08:23 Dose: 50 mg Documented by: Sodium Chloride () 10 - 40 ml IV UD PRN PRN Reason: SALINE FLUSH Last Admin: 09/21/19 22:24 Dose: 10 ml Documented by: Discharge Diet: Low fat/ Low Cholesterol Discharge Activity: Return to Normal Activity Weight Bearing Status: Weight bearing as tolerated Call your doctor if you observe: Fever of 101 or Higher, Shortness of breath, Dizziness, Increased palpitations (irregular heartbeat) Home Medications: Medications to take at Discharge Atorvastatin Calcium 40 mg PO DAILY 02/01/17 Calcium Carb/Vitamin D [Caltrate-600 With Vit D Tab] 1 tab PO BID 02/01/17 Cholecalciferol (Vitamin D3) [Vitamin D3] 2,000 unit PO DAILY 02/01/17 Dulaglutide [Trulicity] 1.5 mg SQ QWEEK 02/01/17 Gabapentin 100 mg PO TID 02/01/17 Pantoprazole Sodium [Protonix] 40 mg PO DAILY 02/01/17 Sertraline HCl [Zoloft] 50 mg PO DAILY 02/01/17 metFORMIN (XR) [Glucophage Xr] 1,000 mg PO BID 02/01/17 Hydrocodone Bitart/Apap 5-325 [[place] 5/325] 1 tab PO BID 09/20/19 Insulin Aspart [Novolog Flexpen] 20 units SUBCUT TIDCM 09/20/19 Insulin Degludec [Tresiba Flextouch U-100] 70 unit SQ QHS 09/20/19 Lisinopril [Zestril] 40 mg PO DAILY 09/20/19 Metoprolol Tartrate 50 mg PO BID 09/20/19 Potassium Chloride [K-Dur] 40 meq PO BID #60 tab 09/22/19 Following Prescrptions Were Given to Patient: Potassium Chloride [K-Dur] 40 meq PO BID #60 tab Transmission Status: Received by [employer] #[id number] Primary Care Physician: Abdias Christian DO [Primary Care Provider] - Please follow up with your Primary Care Physician in: 1-2 weeks Patient Instructions: ED Potassium Deficiency Disposition: Home Minutes spent on discharge:: 40 Patient Condition:: Stable Medical Necessity - Tobacco Use Smoking Status: Current every day smoker Tobacco Use: Cigarettes Meaningful Use Info Meaningful Use Diagnoses (Choose all that apply): None applicable Inpatient E&M: [id number] [facility] Hosp
== END 2019-09-22 11:26 | disposition home or self-care (01) ==
LOC: ED 01:58 → PCU 03:50
PROVIDERS: Admitting Provider Internal Medicine; Emergency Provider Emergency Medicine; PCP Student in an Organized Health Care Education/Training Program; Referring Provider Internal Medicine; Visit Provider Student in an Organized Health Care Education/Training Program
DX: E87.6 Hypokalemia (principal); K21.9 Gastro-esophageal reflux disease without esophagitis; E11.9 Type 2 diabetes mellitus without complications; Z79.899 Other long term (current) drug therapy; Z79.4 Long term (current) use of insulin; Z90.49 Acquired absence of other specified parts of digestive tract; R19.7 Diarrhea, unspecified; I45.10 Unspecified right bundle-branch block; E11.22 Type 2 diabetes mellitus with diabetic chronic kidney disease; N18.3 Chronic kidney disease, stage 3 (moderate); I12.9 Hypertensive chronic kidney disease with stage 1 through stage 4 chronic kidney disease, or unspecified chronic kidney disease; F17.210 Nicotine dependence, cigarettes, uncomplicated; D72.829 Elevated white blood cell count, unspecified; E11.65 Type 2 diabetes mellitus with hyperglycemia
CPT/HCPCS: 36415; 80048; 82088; 82947; 82962; 83735; 84132; 85025; 93005; 96361; 96365; 96366; 97162; 97802; 99218; 99285; 99406; J7030; A4216; G0378

== ENCOUNTER 2024-02-06 14:01 | Emergency (ER) | payer SELFPAY ==
[2024-02-06 14:02] VITALS: BP 152/71; PULSE 103; RESP 20; TEMP 36.5; O2SAT 99; BMI 30.5
--- NOTE | 2024-02-06 15:12 | EKG12_ITS ---
Test Reason : Blood Pressure : / mmHG Vent. Rate : 072 BPM Atrial Rate : 072 BPM P-R Int : 134 ms QRS Dur : 134 ms QT Int : 400 ms P-R-T Axes : 074 051 029 degrees QTc Int : 438 ms Normal sinus rhythm Right bundle branch block Abnormal ECG Confirmed by Tony Wheeler ([id number]), news assignment editor BRUNA TEMPLE ([id number]) on 02/08/2024 9:31:33 AM Referred By: Confirmed By:Tony Wheeler
--- NOTE | 2024-02-06 15:16 | EDS_ITS ---
HPI History of Present Illness Chief Complaint: Dizziness Informant: patient Onset/Context/Timing Onset: Weeks Context: Gradual Onset Timing: Continuous Current Severity: Mild Maximum Severity: Mild Narrative Narrative: 53-year-old female history of hypertension and diabetes. States that for 1/2 weeks she has felt nauseated and lightheaded. Says she just feels like she cannot hold her limbs up. She just gets tired. She denies any headache. She denies any head trauma. No room spinning. No difficulty with walking. 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 Did labs. They felt she may have had a viral syndrome and AB was possibly mildly dehydrated. She denies any lateralizing weakness. She is denies any melena. No chest pain or shortness of breath. Prior similar symptoms: No Recent Illness/Hospitalization: No [facility] Medical History Hypertension Diabetes Home Medications ?Medication ?Instructions ?Recorded ?Last Taken ?Type Atorvastatin Calcium 40 mg PO DAILY Check with primary 02/01/17 Unknown History doctor Gabapentin 100 mg PO TID Check with primary 02/01/17 Unknown History doctor calcium carbonate 600 mg-vitamin 1 tab PO BID Check with primary 02/01/17 Unknown History D3 20 mcg (800 unit) tablet doctor (Caltrate with Vitamin D3) cholecalciferol (vitamin D3) 50 2,000 unit PO DAILY Check with 02/01/17 Unknown History mcg (2,000 unit) capsule (Vitamin primary doctor D3) dulaglutide 1.5 mg/0.5 mL 1.5 mg SQ QWEEK Check with primary 02/01/17 Unknown History subcutaneous pen injector doctor (Adalulicity) metformin 500 mg tablet,extended 1,000 mg PO BID Check with primary 02/01/17 Unknown History release 24 hr doctor pantoprazole 40 mg tablet,delayed 40 mg PO DAILY Check with primary 02/01/17 Unknown History release doctor sertraline 50 mg tablet 50 mg PO DAILY Check with primary 02/01/17 Unknown History doctor hydrocodone-acetaminophen 5-325mg 1 tab PO BID Check with primary 09/20/19 Unknown History 5mg-325mg doctor insulin aspart U-100 100 unit/mL 20 units subcut TIDCM Check with 09/20/19 Unknown History (3 mL) subcutaneous pen primary doctor insulin degludec 100 unit/mL (3 70 unit SQ QHS Check with primary 09/20/19 Unknown History mL) subcutaneous pen doctor lisinopril 40 mg tablet 40 mg PO DAILY Check with primary 09/20/19 Unknown History doctor metoprolol tartrate 50 mg tablet 50 mg PO BID Check with primary 09/20/19 Unknown History doctor potassium chloride 20 mEq 40 meq (2 x 20 mEq) PO BID #60 tabs 09/22/19 Unknown Rx tablet,extended release(part/cryst) Allergy/AdvReac Type Severity Reaction Status Date / Time adhesive tape AdvReac Intermediate Rash Verified 02/06/24 14:04 metformin AdvReac Diarrhea Verified 02/06/24 14:04 Social History Smoking Status: Current every day smoker tobacco type: cigarettes ROS ROS ED ROS Narrative Generalized weakness. Nausea. No vomiting or diarrhea. No fever. No headache nor chest pain or shortness of breath nor abdominal pain. Constitutional Constitutional ED: Denies chills or fever(s) Eyes Eyes: Denies blurry vision ENT ENT ED: Denies ear pain Cardiovascular Cardiovascular: Denies chest pain Respiratory/Chest Respiratory/Chest: Denies cough Gastrointestinal Gastrointestinal: Denies abdominal pain Genitourinary Genitourinary ED: Denies dysuria Musculoskeletal Musculoskeletal: Denies arthralgias Integumentary Denies abscess Neurologic Neurologic: Denies headache(s) Psychiatric Psychiatric: Denies anxiety Endocrine Endocrinology: Denies cold intolerance Hematologic/Lymphatic Hematologic/Lymphatic: Reports none Allergic/Immunologic Allergic/Immunologic ED: Denies mouth swelling, tongue swelling or urticaria EXAM Physical Exam Narrative Exam Narrative: Well-appearing 53-year-old female. Vital signs are stable she is afebrile. She does not look septic toxic or in any distress. Pulse ox 99% on room air no hypoxia. H EENT exam dry reactive light. No facial droop. Normal speech. No trauma. Neck nontender. No lymphadenopathy. Lungs clear to auscultation bilaterally. Heart tachycardic 103 no murmur. Chest wall and ribs nontender. Abdomen soft nontender. Back nontender. Moving all 4 extremities. 5 out of 5 clinical phlebotomist strength. Dorsi and plantarflexion intact. Nontender no edema. Skin no rashes. Neurologically she is awake and alert. No focal neurological deficits. Answering questions following commands. Normal speech. Fingertip to nose and [id number] within normal limits. NIH of 0. Const Vital Signs: 02/06/24 14:02 02/06/24 15:08 02/06/24 16:01 Temperature 97.7 F L Temperature Source Temporal Pulse Rate 103 H 76 Respiratory Rate 20 H 18 Respiratory Effort Normal Respiratory Pattern Normal Blood Pressure 152/71 H 127/66 H Blood Pressure Mean 98 86 Pulse Ox 99 95 Oxygen Delivery Method Room Air Room Air 02/06/24 18:00 Temperature Temperature Source Pulse Rate 63 Respiratory Rate 6 L Respiratory Effort Respiratory Pattern Blood Pressure 125/70 H Blood Pressure Mean 88 Pulse Ox 100 Oxygen Delivery Method Positive well nourished and well developed; Negative for cachectic, contractures or unkempt General Appearance ED: well developed and NAD; Negative for unkempt, cachectic, contractures, cyanotic, diaphoretic or pallor Nutritional Appearance: Negative for cachectic HEENT Reports moist mucous membranes; Denies dry mucous membranes Negative for trauma or tenderness Mouth ED: No dry mucous membranes Mouth: No dry mucous membranes Eyes PERRL and EOMs intact bilaterally General Eye ED: Negative for pale conjunctiva, scleral icterus or other Neck no lymphadenopathy, supple and no JVD General: Negative for tenderness Lymph Lymphatic: Negative for other Chest Wall inspection of chest normal and palpation of chest normal Chest: Negative for other Resp normal respiratory effort and clear to auscultation bilaterally Effort and Inspection: Negative for retractions Auscultation: Negative for rales, rhonchi, wheezes or diminished lung sounds Cardio regular rhythm, S1 normal heart sound, S2 normal heart sound and no murmurs; Negative for regular rate Rate: tachycardic GI normal to inspection, nondistended, normoactive bowel sounds, non-tender, non- distended and no masses Inspection: Negative for abdominal distention Palpation: soft; Negative for tender, guarding or rebound tenderness present Back/Spine no CVA tenderness General Back: Negative for CVA tenderness Cervical Spine: Negative for cervical spine tenderness Thoracic Spine / Upper Back: Negative for thoracic spinal tenderness or paraspinal muscle tenderness Lumbar Spine / Lower Back: Negative for lumbar spinal tenderness Extremity normal to inspection General Extremety ED: Negative for edema or tenderness General Extremity: Negative for edema Neuro oriented x3 and CN's II-XII intact bilaterally Sensorium / Orientation: alert; Negative for orientation impaired, lethargic or stuporous Motor Exam: strength 5/5 throughout; Negative for general weakness or strength abnormal Psych mental status grossly normal Appearance: Negative for unkempt or other Attitude: No agitated Mood & Affect: Negative for depressed, anxious or tearful Skin no rashes or lesions noted, no wounds and skin turgor normal General Skin Exam: Negative for jaundice or pallor Lesions: No lesion noted Rashes: No rashes noted Trauma: Negative for abrasion Wounds: Negative for wounds noted MDM MDM MDM Narrative Medical decision making narrative: 53-year-old female complains of generalized weakness. She has a normal exam. She has normal neurologic exam. Screening labs are being obtained. She is mildly tachycardic. She received IV fluids. History & Record Review Discussion w/independent historian: Patient and Family Additional record(s) reviewed:: Prior inpatient record, Prior outpatient record, Prior ED visit and Prior labs Lab Data Attestation: I reviewed the patient's lab results. Lab results narrative: CBC normal. White count of 10. H&H 13 and 40. Platelets 333. Electrolytes show potassium of 2.9. Gap 6. BUN and creatinine 23 and 1.1. Glucose 245. Urinalysis negative. No nitrates no white or red cells. No bacteria. Labs: Laboratory Results - last 24 hr 02/06/24 02/06/24 15:20 16:50 WBC 10.9 RBC 4.30 Hgb 13.5 Hct 40.7 MCV 94.7 MCH 31.4 MCHC 33.2 RDW Std Deviation 48.0 H RDW Coeff of Marj 13.6 Plt Count 333 MPV 9.7 Immature Gran % (Auto) 0.400 Neut % (Auto) 54.1 Lymph % (Auto) 33.8 [place] % (Auto) 8.3 Eos % (Auto) 2.9 Baso % (Auto) 0.5 Absolute Neuts (auto) 5.9 Absolute Lymphs (auto) 3.68 Nucleated RBC % 0 Sodium 140 Potassium 2.9 L Chloride 115 H Carbon Dioxide 19.0 L Anion Gap 6 BUN 23 H Creatinine 1.13 H Estim Creat Clear Calc 54.23 Est GFR (MDRD) Af Amer 65 Est GFR (MDRD) Non-Af 53 L BUN/Creatinine Ratio 20.4 H Glucose 245 H Calcium 9.8 Urine Color Yellow Urine Clarity Clear Urine pH 7.0 Ur Specific [place] 1.010 Urine Protein 15 H Urine Glucose (UA) 50 H Urine Ketones Negative Urine Occult Blood Negative Urine Nitrite Negative Urine Bilirubin Negative Urine Urobilinogen Normal Ur Leukocyte Esterase Negative Urine RBC 0 SEEN Urine WBC 0 SEEN Ur Squamous Epith Cells 0 SEEN Urine Bacteria 0 SEEN Urine Mucus 0 SEEN Radiography Chest X-Ray - ED: 2 View, Read by ED Physician, Read by Radiologist, Normal, Heart, Lungs, Mediastinum, Bony Structures, No Acute Disease and Chronic Changes Diagnostic Testing: Clinical Impression(s) from Imaging Studies Chest X-Ray 02/06/24 15:35 IMPRESSION: No radiographic evidence of acute cardiopulmonary disease. Electronically Signed: Butch Santillan MD at 15:55 EDT , Chest x-ray, 2 views, interpreted by myself and radiologist shows no acute abnormality. Normal cardiac silhouette. Normal lung dobbins. Rhythm Strip Rhythm Strip: Sinus Rhythm Rate: 72 Ectopy: None EKG Initial EKG: Attestation: I personally reviewed and interpreted this EKG as follows: Interpretation: Sinus Rhythm, No Acute Injury Pattern and RBBB Comments: Sinus rhythm rate of 72. No acute signs of VA or ischemia. Right bundle branch block. Discharge Plan Triage Chief Complaint: Dizziness ED Provider: Aureliano Berkowitz Dx/Rx/DC Orders Prescriptions: No Action sertraline 50 MG tablet 50 mg PO DAILY Atorvastatin Calcium 40 MG tablet 40 mg PO DAILY Gabapentin 100 mg PO TID dulaglutide [Trulicity] 1.5 MG/0.5 ML pen injector 1.5 mg SQ QWEEK pantoprazole 40 MG tablet 40 mg PO DAILY metformin 500 MG tablet 1,000 mg PO BID cholecalciferol (vitamin D3) [Vitamin D3] 2,000 UNIT capsule 2,000 unit PO DAILY calcium carbonate-vitamin D3 [Caltrate with Vitamin D3] 1 TAB tablet 1 tab PO BID hydrocodone-acetaminophen 1 TABLET tablet 1 tab PO BID metoprolol tartrate 50 MG tablet 50 mg PO BID insulin aspart U-100 100 UNITS/ML insulin pen 20 units subcut TIDCM insulin degludec 100 UNIT/ML insulin pen 70 unit SQ QHS lisinopril 40 MG tablet 40 mg PO DAILY potassium chloride 20 MEQ tablet 40 meq PO BID Qty: 60 0RF Primary Care Provider: Abdias Christian Referrals: NOT,DEFINED [Non-Staff] - Print Language: Khmer
[2024-02-06] MEDS: 0.9% Normal Saline (1000mL) 1,000 ML 1000 ML IV (15:18)
--- NOTE | 2024-02-06 15:35 | RAD_ITS ---
EXAM: XR CHEST, 2 VIEWS CLINICAL INDICATION: weakness TECHNIQUE: Frontal and lateral views of the chest. COMPARISON: No relevant prior studies available. FINDINGS: LUNGS AND PLEURAL SPACES: Unremarkable. No consolidation or edema. No pneumothorax. No effusion. HEART: Unremarkable. Cardiac silhouette not enlarged. MEDIASTINUM: Central airways and mediastinal contour are unremarkable. BONES/JOINTS: Unremarkable. No acute fracture. SOFT TISSUES: Unremarkable. RAD/Chest PA and Lateral IMPRESSION: No radiographic evidence of acute cardiopulmonary disease. Electronically Signed: Butch Santillan MD at 15:55 EDT ,
[2024-02-06 15:36] LABS: Absolute Lymphocyte Count 3.68 X10^3/uL (0.83-4.51); Absolute Neutrophil Count 5.9 X10^3/uL (2.0-7.7); Basophil# 0.05 X10^3/uL; Basophil% 0.5 % (0-1); Eosinophil# 0.32 X10^3/uL; Eosinophils% 2.9 % (0-5); Hematocrit 40.7 % (37-47); Hemoglobin 13.5 g/dL (12.0-15.0); Lymphocyte # 3.68 X10^3/ul (0.83-4.51); Lymphocyte % 33.8 % (19-41); Mean Corp Hgb Conc 33.2 g/dL (32-36); Mean Corpuscular Hgb 31.4 pg (27.0-32.0); Mean Corpuscular Volume 94.7 fL (81-99); Mean Platelet Vol. 9.7 fl (6.2-12.0); Monocyte% 8.3 % (0-10); NRBC Flagged by Analyzer 0 % (0-5); Neutrophil % 54.1 % (47-70); Platelet Count 333 K/mm3 (150-450); RBC Distribution Width CV 13.6 % (11.6-14.6); White Blood Count 10.9 K/mm3 (4.4-11.0)
[2024-02-06 15:49] LABS: Anion Gap 6 (5-15); BUN 23 mg/dL (7-18); BUN/Creat Ratio 20.4 RATIO (10-20); Calcium,Total 9.8 mg/dL (8.5-10.1); Chloride 115 mmol/L (98-107); Creatinine, Serum 1.13 mg/dL (0.55-1.02); EST Glomerular Filtration Rate 53 mL/min (>60); Est Glom Filt Rate - Afr Amer 65 mL/min (>60); Estimated Creatinine Clearance 54.23 ml/min; Glucose 245 mg/dL (74-106); Potassium 2.9 mmol/L (3.5-5.1); Sodium Level 140 mmol/L (136-145)
[2024-02-06 16:01] VITALS: BP 127/66; PULSE 76; RESP 18; O2SAT 95
[2024-02-06 16:56] LABS: Bacteria 0 SEEN /hpf (None Seen); Mucous, Urine 0 SEEN /hpf (<or=2+); Red Blood Cells-Urine 0 SEEN /hpf (0-5); Squamous Epithelial Cells - UA 0 SEEN /hpf (5-10); White Blood Cells 0 SEEN /hpf (0-5)
[2024-02-06 16:58] LABS: Color, Urine Yellow (Yellow); Glucose, Dipstick 50 mg/dl (Normal); Ketone-Dipstick Negative (Negative); Leukocyte Esterase-Dipstick Negative /ul (Negative); Nitrite-Dipstick Negative (Negative); Occult Blood-Urine Negative /ul (Negative); Protein-Dipstick 15 mg/dl (Negative); Urine Bilirubin Dipstick Negative (Negative); Urine Clarity Clear (Clear); Urine Urobilinogen Normal (Normal)
[2024-02-06 18:00] VITALS: BP 125/70; PULSE 63; RESP 6; O2SAT 100
--- NOTE | 2024-02-06 18:10 | ED.RN ---
discussed reeval with . states will be in to talk to patient next, daughter and pt updated.
[2024-02-06] MEDS: Potassium Chloride Oral Tablet 20 MEQ 40 MEQ PO (18:43)
[2024-02-06 18:44] VITALS: BP 144/78; PULSE 78; RESP 19; TEMP 36.8; O2SAT 99
== END 2024-02-06 18:47 | disposition home or self-care (01) ==
PROVIDERS: Emergency Provider Emergency Medicine; PCP Student in an Organized Health Care Education/Training Program; Visit Provider Emergency Medicine
DX: R42 Dizziness and giddiness (principal); E11.9 Type 2 diabetes mellitus without complications; Z79.4 Long term (current) use of insulin; F17.210 Nicotine dependence, cigarettes, uncomplicated; I10 Essential (primary) hypertension; Z79.899 Other long term (current) drug therapy; Z79.85 Long-term (current) use of injectable non-insulin antidiabetic drugs; Z79.84 Long term (current) use of oral hypoglycemic drugs
CPT/HCPCS: 71046; 80048; 81001; 85025; 93005; 96360; 96361; 99284; J7030; A4216